=== PATIENT | male | born 1960 | race Caucasian/White ===

== ENCOUNTER → 2021-08-22 | Day surgery (SDC) | payer OTHER ==
[~2021-08-22] VITALS: Ht 182.9 cm; Wt 140.6 kg
[~2021-08-22] MED LIST: DUONEB 2.5-0.5M1 AMP INH; PERCOCET 5-3251 EACH PO; PREDNISONE20 MG PO; PREDNISONE5 MG PO; TRELEGY ELLIPT1 EACH INH; VICTOZA 3-0.6 MG/0.1 SUBD
[2021-08-22 10:33] LABS: HCT 46.1 % (42.0-52.0); HGB 15.1 g/dl (13.2-18.0); MCH 28.8 pg (25.0-31.0); MCHC 32.8 g/dL (32.0-36.0); MPV 11.3 fL (6.0-9.5); RBC 5.24 M/uL (4.70-6.00); RDW 13.2 % (11.5-14.0); WBC 7.8 K/uL (4.0-10.5)
[2021-08-22 10:42] LABS: ALBUMIN 3.2 g/dL (3.4-5.0); BILIRUBIN - TOTAL 0.5 mg/dL (0.2-1.0); BUN/CREAT RATIO (CALC) 14.5 RATIO; CREATININE 0.83 mg/dL (0.67-1.17); GLOBULIN (CALCULATION) 3.7 g/dL; POTASSIUM 4.2 mmol/L (3.5-5.1); TOTAL PROTEIN 6.9 g/dL (6.4-8.2)
== END | disposition home or self-care (01) ==
LOC: FAS 09:38
PROVIDERS: Orthopaedic Surgery
DX: M19.012 Primary osteoarthritis, left shoulder (principal); M75.112 Incomplete rotator cuff tear or rupture of left shoulder, not specified as traumatic; E11.9 Type 2 diabetes mellitus without complications; J44.9 Chronic obstructive pulmonary disease, unspecified; Z79.84 Long term (current) use of oral hypoglycemic drugs; Z79.899 Other long term (current) drug therapy; Z88.5 Allergy status to narcotic agent
CPT/HCPCS: 36415; 71045; 80053; 93005; J0171; J0690; J1100; J1170; J2250; J2405; J2704; J2795; J3010; J7120

== ENCOUNTER 2021-10-06 22:24 | Emergency (ER) | payer OTHER | END 2021-10-06 23:45 | disposition home or self-care (01) | LOC: FER 22:24 | DX: H57.89 Other specified disorders of eye and adnexa (principal); E11.9 Type 2 diabetes mellitus without complications; Z28.310 Unvaccinated for COVID-19; Z88.5 Allergy status to narcotic agent; Z79.899 Other long term (current) drug therapy | CPT/HCPCS: 99283 ==